=== PATIENT | female | born 1935 | race Caucasian/White ===

== ENCOUNTER 2017-02-19 10:16 | Outpatient (CLI) | payer OTHER ==
--- NOTE | 2017-02-19 11:43 | DIAGNOSTIC IMAGING REPORT ---
PROCEDURE: DEXA BONE DENSITY STUDY CLINICAL INDICATION: ASYMPTOMATIC MENOPAUSAL STATE COMPARISON: None. FINDINGS: LUMBAR SPINE: Bone mineral density 1.134, T-score 0.8, normal LEFT HIP: Bone mineral density 0.972, T-score 0.2, normal LEFT FEMORAL NECK: Bone mineral density 0.739, T-score -1.0, normal (T score greater or equal to -1.0 to: NORMAL) (T score from -1.1 to -2.4: OSTEOPENIA) (T score ess than or equal to -2.5: OSTEOPOROSIS) IMPRESSION: 1. Normal lumbar spine and left hip bone mineral density
== END 2017-02-19 23:00 ==
LOC: XR SRH 10:16
DX: Z13.820 Encounter for screening for osteoporosis (principal)